=== PATIENT | male | born 2000 | race Caucasian/White ===

== ENCOUNTER 2021-06-11 09:47 | Outpatient (CLI) | payer OTHER, SELFPAY ==
[2021-06-11 10:45] LABS: Alanine Aminotransferase 336 U/L (4-50); Albumin Level 4.6 g/dL (3.5-5.1); Alkaline Phosphatase 126 U/L (38-126); Aspartate Amino Transferase 186 U/L (17-59); Bilirubin,Total 0.7 mg/dL (0.2-1.3); Iron 105 ug/dL (49-181)
[2021-06-11 10:46] LABS: Rheumatoid Factor < 8.6 IU/ML (<12)
[2021-06-14 07:40] LABS: Ceruloplasmin 44 mg/dL (18-36)
== END 2021-06-11 09:48 | disposition home or self-care (01) ==
LOC: ANHLAB 09:58
DX: R79.89 Other specified abnormal findings of blood chemistry (principal)
CPT/HCPCS: 36415; 80076; 82390; 82728; 83540; 86430

== ENCOUNTER 2021-06-24 08:38 | Outpatient (CLI) | payer OTHER, SELFPAY ==
--- NOTE | ~2021-06-24 | US_ITS ---
EXAMINATION: US right upper quadrant DATE: 06/24/2021 09:12 INDICATION: Right upper quadrant pain TECHNIQUE: Multiple grayscale and Doppler ultrasound images of the abdomen were obtained. COMPARISON: None available FINDINGS: Bowel gas obscures visualization of the pancreas. The visualized portions of the pancreas a re unremarkable. The liver is normal with normal echogenicity and echotexture. No surface nodularity. Normal hepatopetal flow in the main portal vein. There is a small amount of gallbladder sludge. Ther e is no pericholecystic fluid or gallbladder wall thickening. The normal common bile duct measures 2 mm. There was no sonographic Ventura sign. IMPRESSION: 1. Gallbladder sludge, otherwise unremarkable exam. Reviewed, dictated and finalized at location A.
== END 2021-06-24 08:39 | disposition home or self-care (01) ==
DX: R79.89 Other specified abnormal findings of blood chemistry (principal)
CPT/HCPCS: 76705

== ENCOUNTER 2021-08-07 07:19 | Outpatient (CLI) | payer OTHER, SELFPAY ==
--- NOTE | ~2021-08-07 | US_ITS ---
EXAMINATION: US retroperitoneal duplex ltd DATE: 08/07/2021 08:21 INDICATION: Essential hypertension TECHNIQUE: Multiple grayscale, color Doppler, and pulsed Doppler images of the kidneys and renal sanam portia were obtained. COMPARISON: None. FINDINGS: The aorta peak systolic velocity is 128 cm/s. The right renal artery peak systolic velocity is 144 cm /s in the proximal segment, 73 cm/s in the mid segment, and 56 cm/s in the distal segment. The left r enal artery peak systolic velocity is 53 cm/s in the proximal segment, 136 cm/s in the mid segment, a nd 185 cm/s in the distal segment. IMPRESSION: 1. Borderline elevated proximal left renal artery peak systolic velocities consistent with >50-60% s tenosis. 2. No Doppler evidence of significant right renal artery stenosis. Reviewed, dictated and finalized at location B. IMPRESSION: 1. Borderline elevated proximal left renal artery peak systolic velocities con sistent with >50-60% stenosis. 2. No Doppler evidence of significant right renal artery stenosis.
== END 2021-08-07 07:20 | disposition home or self-care (01) ==
DX: I10 Essential (primary) hypertension (principal)
CPT/HCPCS: 93976

== ENCOUNTER 2024-02-28 16:26 | Emergency (ER) | payer OTHER, SELFPAY ==
--- NOTE | ~2024-02-28 | XR_ITS ---
EXAM: XR shoulder LT min 2V DATE: 02/28/2024 17:47 HISTORY: pain ant shoulder/upper chest. injury lifting wts . COMPARISON: None available. FINDINGS: Normal mineralization. No fracture or dislocation. No lytic or blastic lesion. Joint space s are maintained. No erosion or periosteal change. Soft tissues within normal limits. IMPRESSION: No acute osseous finding in the left shoulder. Reviewed, dictated and finalized at location K. [employer]
[2024-02-28 16:44] VITALS: BP 165/83; PULSE 68; RESP 16; TEMP 36.8; O2SAT 100
--- NOTE | 2024-02-28 17:41 | ED_ITS ---
HPI - Extremity Injury (Upper) General Chief Complaint: Extremity Injury, Upper Stated Complaint: L CHEST/SHOULDER INJURY Time Seen by Provider: 02/28/24 17:30 Source: patient and RN notes reviewed Mode of arrival: ambulatory Limitations: no limitations History of Present Illness HPI narrative: Patient presents today complaining of an injury to his left chest. Just prior to arrival, patient was at the [facility] using the bench press and felt a pop in his left upper chest followed by sudden onset pain to the area radiating to his left shoulder. Pain increases significantly with movement of the left arm. With his arm at rest he rates his pain 4/10. No [id number] treatment prior to arrival. Denies numbness or tingling in the arm or hand. Related Data Home Medications ?Medication ?Instructions ?Recorded ?Confirmed ?Last Taken ?Type amlodipine 5 mg-benazepril 10 mg cap 02/28/24 Unknown History capsule Allergies Allergy/AdvReac Type Severity Reaction Status Date / Time No Known Allergies Allergy Verified 02/28/24 17:56 Review of Systems Review of Systems: CONSTITUTIONAL: Denies body aches, fever, chills, or sweats. EYES: Denies visual changes, redness, or discharge. ENT: Denies rhinorrhea, congestion, sore throat, or otalgia. CARDIOVASCULAR: Denies chest pain, palpitations, or edema. RESPIRATORY: Denies cough or dyspnea. GASTROINTESTINAL: Denies abdominal pain, nausea, vomiting, or diarrhea. GENITOURINARY: Denies dysuria or hematuria. SKIN: Denies rash, itching, or wounds. MUSCULOSKELETAL: + left chest injury NEUROLOGIC: Denies headache, numbness, tingling, or weakness. PSYCH: Denies depression or anxiety. PMFSH Comments At time of signature, I have reviewed and agree with nursing past medical, surgical, social and family history unless otherwise noted. Please see nursing chart for further information. There is no relevant family history pertinent to the presenting complaint Exam Narrative: GENERAL: Well-appearing, well-nourished, and in no acute distress. HEAD: Normocephalic, atraumatic. EYES: EOMI. No redness or drainage. Conjunctivae normal. ENT: Mucous membranes pink and moist. NECK: Normal AROM. CHEST: No respiratory distress. EXTREMITIES: Tenderness to the left upper pectoralis muscle. Limited AROM of the left shoulder due to increased pain to the affected area. Mild tenderness to the anterior shoulder. Distal sensation intact. Capillary refill normal. Radial pulse normal. Left pectoralis muscle is markedly enlarged compared to the right side. No ecchymosis noted. SKIN: Warm, dry, no rash. Capillary refill normal. Normal skin turgor. NEURO: No focal deficits. Alert and oriented x3. Gait steady. PSYCH: Normal affect. No signs of depression or anxiety. Course Course Level of Care: Express Care Visit Vital Signs Vital signs: Vital Signs Temperature 98.2 F 02/28/24 16:44 Pulse Rate 68 02/28/24 16:44 Respiratory Rate 16 02/28/24 16:44 Blood Pressure 165/83 H 02/28/24 16:44 Pulse Oximetry 100 02/28/24 16:44 Temperature 98.2 F 02/28/24 16:44 Pulse Rate 68 02/28/24 16:44 Respiratory Rate 16 02/28/24 16:44 Blood Pressure 165/83 H 02/28/24 16:44 Pulse Oximetry 100 02/28/24 16:44 Reviewed MDM - Extremity Injury (Upper) MDM Narrative Medical decision making narrative: X-ray is negative. Concern for pectoralis tear. Recommend orthopedic follow-up as soon as possible for further evaluation. Patient agrees with plan. Anticipatory guidance given Differential Diagnosis Differential diagnosis: Likely other (pectoralis major tear, shoulder strain, rotator cuff tear) Imaging Data Radiologist's impression: ITS Impressions Shoulder X-Ray 02/28/24 17:48 IMPRESSION: No acute osseous finding in the left shoulder. Critical Care Time Critical Care Time Critical Care Time: No Discharge Plan Discharge Clinical Impression: Injury of muscle of chest wall Patient Disposition: Home, Self-Care Condition: Stable Additional Instructions: The x-ray of your shoulder/upper chest area is negative today. There is a concern for a rupture or tear of your pectoralis muscle. Please follow-up with orthopedics as soon as possible for further evaluation. Ice your chest. Take Tylenol or ibuprofen for pain. No lifting with the left arm until you are evaluated. Your blood pressure was elevated above 120/80 today at Urgent Care. This puts you above the threshold for follow up. Please schedule a followup visit with your personal physician as soon as possible, for further evaluation and treatment. Even blood pressure exceeding 120/80 may indicate pre-hypertension. Patient Language: Urdu Prescriptions: No Action amlodipine-benazepril 5-10 mg capsule Follow-up/Referrals: Scotty,Geovanni [Other] Nakul Coates MD [Physician] - (Concern for pectoralis tear.) Stand Alone Forms: Work/School Release IP Time of Disposition: 18:09
[2024-02-28] MEDS: IBUPROFEN 400 MG TABLET 800 MG PO (17:58)
== END 2024-02-28 18:18 | disposition home or self-care (01) ==
PROVIDERS: Emergency Provider Nurse Practitioner
DX: S29.9XXA Unspecified injury of thorax, initial encounter (principal); Y93.B3 Activity, free weights
CPT/HCPCS: 73030; 99203; A9270; G0463

== ENCOUNTER 2024-10-04 11:36 | Emergency (ER) | payer OTHER, SELFPAY ==
[2024-10-04 11:47] VITALS: BP 137/73; PULSE 75; RESP 16; TEMP 36.3; O2SAT 100
--- NOTE | 2024-10-04 12:56 | ED.WOUNDLAC ---
HPI - Wound/Laceration General Chief Complaint: Wound/Laceration Stated Complaint: Left Thumb Laceratin Time Seen by Provider: 10/04/24 12:35 Source: patient and RN notes reviewed Mode of arrival: ambulatory Limitations: no limitations History of Present Illness HPI narrative: 24-year-old male presents Express Care complaining of left thumb injury. Patient said he was cutting potatoes with a knife when he accidentally cut himself on his left thumb. Patient reports having a laceration in his left thumb the goes into his left nail. Patient says nail still intact. Bleeding controlled prior to arrival. Patient's tetanus is up-to-date. Patient denies any other injuries. Denies any numbness or tingling. Related Data Home Medications ?Medication ?Instructions ?Recorded ?Confirmed ?Last Taken ?Type amlodipine 5 mg-benazepril 10 mg cap 02/28/24 Unknown History capsule fluticasone propionate 50 intranasal 10/04/24 Unknown History mcg/actuation nasal spray,suspension Allergies Allergy/AdvReac Type Severity Reaction Status Date / Time No Known Allergies Allergy Verified 10/04/24 11:45 Review of Systems Review of Systems: CONSTITUTIONAL: Denies fever, chills, or sweats. EYES: Denies visual changes, redness, or discharge. ENT: Denies rhinorrhea, congestion, sore throat, or otalgia. CARDIOVASCULAR: Denies chest pain, palpitations, or edema. RESPIRATORY: Denies cough or dyspnea. GASTROINTESTINAL: Denies abdominal pain, nausea, vomiting, or diarrhea. GENITOURINARY: Denies dysuria or hematuria. SKIN: Denies rash or itching. MUSCULOSKELETAL: Denies back pain, joint pain, or myalgia. NEUROLOGIC: Denies headache, numbness, or weakness. PSYCHIATRIC: Denies anxiety or depression. All other systems reviewed are negative, except as documented in HPI. PMFSH Comments At the time of my signature, I reviewed and agree with the nursing past medical, surgical, social, and family history. There is no relevant family history pertinent to the patient complaint. Exam Narrative: GENERAL: This is a well-nourished, well-developed adult, in no apparent distress. They are non ill-appearing, nontoxic appearing. HEAD: normocephalic, atraumatic. EYES: Sclera clear/white. Conjunctiva normal. Vision is grossly intact. Extraocular movements intact EARS: External ears normal,Hearing grossly intact. NOSE: External nose normal THROAT: Mucous membranes moist, NECK: Neck supple, CARDIOVASCULAR: Regular rate and rhythm RESPIRATORY: Respiratory rate normal, respiratory effort nonlabored, no respiratory distress SKIN: Left thumb: Approximately 2 cm laceration that starts at the mid lunlua extending upward in a diagonal direction through the medial nail plate into the distal medial thumb. Laceration on nail plate is approximately 1 cm. Laceration to skin of thumb is approximately 1 cm. Laceration approximates well. Nail plate is intact. Nail bed is intact. Laceration very superficial. No induration, no area of fluctuance, no exudate, no redness, mild swelling and tenderness to palpation. Capillary refill less than 2 seconds, patient is able to flex and extend his thumb against resistance at the DIP and MCP joint. Neurovascular status intact distal injury. Will sensation. NEURO: awake, alert, and oriented to person, place and time. There were no obvious focal neurologic abnormalities. EXTREMITIES: No joint tenderness, effusion, or edema noted. Course Course Emergency Course: Portions of this record may have been created with voice recognition software Level of Care: Express Care Visit Vital Signs Vital signs: Vital Signs Temperature 97.4 F L 10/04/24 11:47 Pulse Rate 75 10/04/24 11:47 Respiratory Rate 16 10/04/24 11:47 Blood Pressure 137/73 10/04/24 11:47 Pulse Oximetry 100 10/04/24 11:47 Temperature 97.4 F L 10/04/24 11:47 Pulse Rate 75 10/04/24 11:47 Respiratory Rate 16 10/04/24 11:47 Blood Pressure 137/73 10/04/24 11:47 Pulse Oximetry 100 10/04/24 11:47 Reviewed MDM - Wound/Laceration MDM Narrative Medical decision making narrative: Patient has finger laceration extending into nail. The nail plate is intact along with the nail bed. No evidence of nail bed involvement with laceration. Laceration very superficial and is well approximated. Offered patient sutures for better closure patient declines 1 sutures. Offered patient Steri-Strips and he agreed to have Steri-Strips. Steri-Strips applied to the laceration. Patient given middle finger splint to protect wound. Will prophylactically treat for infection prevention with cephalexin. Patient tetanus is up today. Will refer patient to hand specialist if he has any issues with nail growth. Discussed physical exam findings. Advised supportive measures and signs/symptoms to go to the ER. Pt is appropriate for outpt treatment and f/u. Differential Diagnosis Differential diagnosis: Likely laceration, avulsion of skin and other (Nail amputation) Critical Care Time Critical Care Time Critical Care Time: No Discharge Plan Discharge Clinical Impression: Laceration Patient Disposition: Home Condition: Stable Instructions: Antibiotic Form, Finger Laceration (ED) Additional Instructions: Leave Steri-Strips on for 1 week. Steri-Strips normally rule off on their own. Wash the wound daily with mild soap and water. Do Not soak or scrub the wound. Avoid dirty water until the wound has healed completely. Do not put alcohol peroxide it. Do NOT apply antibiotic ointment. Tylenol ibuprofen as needed pain. Take cephalexin as directed. Go to the ER for any signs of infection such as redness, swelling, increased pain, or drainage. ?Follow-up with a hand specialist if your nails not growing appropriately. Patient Language: Australian Prescriptions: New cephalexin 500 mg capsule 500 mg PO Q6H 7 Days Qty: 28 0RF No Action amlodipine-benazepril 5-10 mg capsule fluticasone propionate 50 mcg/actuation spray,suspension INTRANASAL Follow-up/Referrals: Joi Perez MD [Physician] - PHYSICIAN NOT ON STAFF,NONSTAFF [Primary Care Provider] - Time of Disposition: 12:48
== END 2024-10-04 13:06 | disposition home or self-care (01) ==
DX: S61.112A Laceration without foreign body of left thumb with damage to nail, initial encounter (principal); W26.0XXA Contact with knife, initial encounter; I10 Essential (primary) hypertension
CPT/HCPCS: 29130; 99213; G0463